=== PATIENT | male | born 1985 | race African-American/Black ===

== ENCOUNTER 2022-03-31 10:23 | Emergency (ER) | payer SELFPAY ==
--- NOTE | 2022-03-31 10:56 | EDPHYS ---
Physician Documentation [facility] Name: Terry Zimmerman Age: 37 yrs Sex: Male : 1985 Arrival Date: 03/31/2022 Time: 10: Bed Waiting Private MD: JARED Physician Estuardo Kerr HPI: 03/31 10:55 This 37 yrs old Black Male presents to ER via Ambulatory with complaints of Foot jh7 Problem. 10:55 Onset: The symptoms/episode began/occurred gradually, 5 year(s) ago, and became worse 2 jh7 week(s) ago. Patient reports calluses on bilateral great toes with worse pain on the plantar surface of the left great toe. States that this has been like this for years, but now he is starting a new job and wants to ensure his feet are not hurting. States that he normally shaves down the calluses but that this time it is too painful. No medical problems.. Historical: - Allergies: 10:49 No Known Allergies; iw - Home Meds: 10:49 None [Active]; iw - PMHx: 10:49 None; iw - PSHx: 10:49 None; iw - Social history:: Smoking status: Patient denies any tobacco usage or history of. ROS: 10:55 Constitutional: Negative for fever, chills, and weight loss, Neck: Negative for injury, jh7 pain, and swelling, Cardiovascular: Negative for chest pain, palpitations, and edema, Respiratory: Negative for shortness of breath, cough, wheezing, and pleuritic chest pain, Abdomen/GI: Negative for abdominal pain, nausea, vomiting, diarrhea, and constipation, Back: Negative for injury and pain. 10:55 MS/extremity: Positive for pain, tenderness, Negative for injury or acute deformity. 10:55 Skin: Positive for Calluses, plantar wart . Exam: 10:55 Constitutional: This is a well developed, well nourished patient who is awake, alert, jh7 and in no acute distress. Cardiovascular: Regular rate and rhythm with a normal S1 and S2. No gallops, murmurs, or rubs. Normal PMI, no JVD. No pulse deficits. Respiratory: Lungs have equal breath sounds bilaterally, clear to auscultation and percussion. No rales, rhonchi or wheezes noted. No increased work of breathing, no retractions or nasal flaring. Back: No spinal tenderness. No costovertebral tenderness. Full range of motion. MS/ Extremity: Pulses equal, no cyanosis. Neurovascular intact. Full, normal range of motion. Neuro: Awake and alert, GCS 15, oriented to person, place, time, and situation. Motor strength 5/5 in all extremities. Sensory grossly intact. Normal gait. 10:55 Skin: Large calluses on the plantar surface of bilateral great toes. It appears that there is a plantar wart that is tender to palpation over the great toe.. Vital Signs: 10:48 BP 130 / 94; Pulse 82; Resp 16; Temp 98.4; Pulse Ox 100% on R/A; iw MDM: 10:55 Data reviewed: vital signs, nurses notes. Data interpreted: Pulse oximetry: is 100 %. [facility] Interpretation: normal. Counseling: I had a detailed discussion with the patient and/or guardian regarding: the historical points, exam findings, and any diagnostic results supporting the discharge/admit diagnosis, to return to the emergency department if symptoms worsen or persist or if there are any questions or concerns that arise at home. ED course: Toradol administered for pain, and podiatry referral provided.. 10:56 Patient medically screened. [facility] Administered Medications: 11:00 Drug: Ketorolac 60 mg Route: IM; Site: right deltoid; 11:04 Follow up: Response: No adverse reaction Disposition Summary: 03/31/22 10:56 Discharge Ordered Location: Home [facility] Problem: chronic [facility] Symptoms: are unchanged [facility] Condition: Stable [facility] Diagnosis - Pain in left foot [facility] - Plantar wart [facility] Followup: [facility] - With: Ousmane Wen DPM - When: 2 - 3 days - Reason: Recheck today's complaints Discharge Instructions: - Discharge Summary Sheet [facility] - Corns and Calluses [facility] - Plantar Warts [facility] Forms: - Medication Reconciliation Form [facility] - Thank You Letter [facility] Prescriptions: - Medrol (Andrew) 4 mg Oral Tablets, Dose Pack - take 1 tablet by ORAL route as directed - follow package instructions; 1 [facility] packet; Refills: 0, Product Selection Permitted Signatures: Radha Lomax, RN RN Mana Landin FNP FNP [facility]
--- NOTE | 2022-03-31 10:56 | ER ---
Nurse's Notes [facility] Name: Terry Zimmerman Age: 37 yrs Sex: Male : 1985 Arrival Date: 03/31/2022 Time: 10:27 Bed Waiting Private MD: Diagnosis: Pain in left foot;Plantar wart Presentation: 03/31 10:48 Chief complaint: Patient states: since I was a teen I have callouses under my big toes iw and they hurt and I can't walk unless i cut them, I just have a lot of pain and I'm supposed to start a new job Sunday. Coronavirus screen: At this time, the client does not indicate any symptoms associated with coronavirus-19. Ebola Screen: Patient negative for fever greater than or equal to 101.5 degrees Fahrenheit, and additional compatible Ebola Virus Disease symptoms Patient denies exposure to infectious person. Patient denies travel to an Ebola-affected area in the 21 days before illness onset. No symptoms or risks identified at this time. Initial Sepsis Screen: Does the patient meet any 2 criteria? No. Patient's initial sepsis screen is negative. Does the patient have a suspected source of infection? No. Patient's initial sepsis screen is negative. Risk Assessment: Do you want to hurt yourself or someone else? Patient reports no desire to harm self or others. Onset of symptoms. 10:48 Method Of Arrival: Ambulatory iw 10:48 Acuity: KYLAH 4 iw Historical: - Allergies: 10:49 No Known Allergies; iw - Home Meds: 10:49 None [Active]; iw - PMHx: 10:49 None; iw - PSHx: 10:49 None; iw - Social history:: Smoking status: Patient denies any tobacco usage or history of. Screenin:54 Abuse screen: Denies threats or abuse. Denies injuries from another. Nutritional iw screening: No deficits noted. Tuberculosis screening: No symptoms or risk factors identified. Fall Risk None identified. Assessment: 10:54 General: Appears in no apparent distress. Behavior is calm, cooperative. Pain: iw Complains of pain in right foot and left foot. Neuro: Level of Consciousness is awake, alert, obeys commands, Oriented to person, place, time, situation. Respiratory: Respiratory effort is even, unlabored, Respiratory pattern is regular. Vital Signs: 10:48 BP 130 / 94; Pulse 82; Resp 16; Temp 98.4; Pulse Ox 100% on R/A; iw ED Course: 10:27 Patient arrived in ED. rg4 10:49 Triage completed. iw 10:50 [facility] jh7 10:50 Estuardo Kerr MD is Attending Physician. jh7 10:50 Arm band placed on. iw 10:54 Radha Lomax RN is Primary Nurse. iw 10:54 No provider procedures requiring assistance completed. Patient did not have IV access iw during this emergency room visit. 10:55 Ousmane Wen DPM is Referral Physician. jh7 11:00 Patient has correct armband on for positive identification. iw Administered Medications: 11:00 Drug: Ketorolac 60 mg Route: IM; Site: right deltoid; iw 11:04 Follow up: Response: No adverse reaction iw Medication: 11:00 VIS not applicable for this client. iw Outcome: 10:56 Discharge ordered by . [facility] 11:02 Discharged to home ambulatory, with family. iw 11:02 Condition: good 11:02 Discharge instructions given to patient, Instructed on discharge instructions, follow up and referral plans. medication usage, Demonstrated understanding of instructions, follow-up care, medications, Prescriptions given X 1. 11:03 Patient left the ED. iw Signatures: Radha Lomax RN RN iw Garcia, Rubi rg4 Mana Santoyo FNP [employer] [facility]
[2022-03-31] MEDS ORDERED: KETOROLAC 30 MG/ML INJ ONE (11:04)
[2022-03-31 11:09] VITALS: BP 130/94; TEMP 98.4; O2SAT 100
== END 2022-03-31 11:03 | disposition home or self-care (01) ==
LOC: ER 10:23
DX: B07.0 Plantar wart (principal)
CPT/HCPCS: 96372; 99283